=== PATIENT | male | born 1980 ===

== ENCOUNTER 2018-12-24 22:05 | Emergency (ER) | payer OTHER ==
[2018-12-24 22:17] VITALS: BMI 23.6
[2018-12-24] MEDS ORDERED: Albuterol-Ipratrop 3 mg / 0.5 (3 ml) UD IH STA (23:16)
[2018-12-25 00:31] VITALS: BP 129/74; PULSE 82; RESP 17; O2SAT 100
--- NOTE | 2018-12-25 00:34 | ED PDOC ---
Arrival/HPI - General Chief Complaint: Shortness Of Breath Time Seen by Provider: 12/24/18 22:14 Historian: Patient - History of Present Illness Narrative History of Present Illness (Text): 12/25/18 22:14 Mango Light is a 38 year old male, with no significant past medical history, who presents to the emergency department complaining of productive cough, headache, runny nose, and chest pain. Patient informs chest pain is secondary to inspiration. Patient notes sick contact in his home. Patient denies any fevers, chills, dizziness, vision changes, shortness of breath, dyspnea on exertion, abdominal pain, nausea, vomiting, diarrhea, back pain, neck pain, or any other complaint. Symptom Onset: Gradual Symptom Course: Unchanged Activities at Onset: Light Context: Home Past Medical History - Provider Review Nursing Documentation Reviewed: Yes - Cardiac Hx Cardiac Disorders: No - Pulmonary Hx Respiratory Disorders: No - Psychiatric Hx Substance Use: No - Anesthesia Hx Anesthesia: No Family/Social History - Physician Review Nursing Documentation Reviewed: Yes Family/Social History: No Known Family HX Smoking Status: Never Smoked Hx Alcohol Use: Yes Frequency of alcohol use: Socially Hx Substance Use: No Allergies/Home Meds Allergies/Adverse Reactions: Allergies No Known Allergies Allergy (Verified 12/24/18 22:17) Review of Systems - Physician Review All systems were reviewed & negative as marked: Yes - Review of Systems Constitutional: absent: Fevers, Other (chills) Eyes: absent: Vision Changes ENT: Rhinorrhea, Sinus Congestion Respiratory: Cough, Sputum. absent: SOB Cardiovascular: Chest Pain (secondary to inspiration). absent: CALDERÓN Gastrointestinal: absent: Abdominal Pain, Diarrhea, Nausea, Vomiting Musculoskeletal: absent: Back Pain, Neck Pain Neurological: Headache. absent: Dizziness Physical Exam Vital Signs Reviewed: Yes Vital Signs Temp Pulse Resp BP Pulse Ox 12/24/18 22:16 98.5 F 79 18 142/88 99 Temperature: Afebrile Blood Pressure: Normal Pulse: Regular Respiratory Rate: Normal Appearance: Positive for: Well-Appearing, Non-Toxic, Comfortable Pain Distress: None Mental Status: Positive for: Alert and Oriented X 3 - Systems Exam Head: Present: Atraumatic, Normocephalic Pupils: Present: PERRL Extroacular Muscles: Present: EOMI Conjunctiva: Present: Normal Mouth: Present: Moist Mucous Membranes Neck: Present: Normal Range of Motion Respiratory/Chest: Present: Good Air Exchange, Rhonchi (mild rhonchi bilaterally). No: Respiratory Distress, Accessory Muscle Use Cardiovascular: Present: Regular Rate and Rhythm, Normal S1, S2. No: Murmurs Abdomen: No: Tenderness, Distention, Peritoneal Signs Back: Present: Normal Inspection Upper Extremity: Present: Normal Inspection. No: Cyanosis, Edema Lower Extremity: Present: Normal Inspection. No: Edema Neurological: Present: GCS=15, CN II-XII Intact, Speech Normal Skin: Present: Warm, Dry, Normal Color. No: Rashes Psychiatric: Present: Alert, Oriented x 3, Normal Insight, Normal Concentration Medical Decision Making ED Course and Treatment: 12/25/18 22:14 Impression: Patient is 38 year old male who presents to the emergency department complaining of productive cough, headache, congestion, and chest pain. Patient notes chest pain is secondary to inspiration. Pt informs of sick contact at home. Differential Diagnosis included but are not limited to: Plan: -- Chest X-Ray 2V -- Duoneb -- Zithromax -- Influenza A B -- Reassess and disposition Prior Visits: Notes and results from previous visits were reviewed. Progress Notes: chest x sabine neg improved will dc on z pack - RAD Interpretation Radiology Orders: 12/24/18 23:16 CHEST TWO VIEWS (PA/LAT) [RAD] Stat - Medication Orders Current Medication Orders: Discontinued Medications Albuterol/Ipratropium (Duoneb 3 Mg/0.5 Mg (3 Ml) Ud) 3 ml IH STAT STA Stop: 12/24/18 23:17 Last Admin: 12/25/18 00:00 Dose: 3 ml - Scribe Statement The provider has reviewed the documentation as recorded by the Scribe Tristen Rodriges All medical record entries made by the Scribe were at my direction and personally dictated by me. I have reviewed the chart and agree that the record accurately reflects my personal performance of the history, physical exam, medical decision making, and the department course for this patient. I have also personally directed, reviewed, and agree with the discharge instructions and disposition. Disposition/Present on Arrival - Present on Arrival Any Indicators Present on Arrival: No History of DVT/PE: No History of Uncontrolled Diabetes: No Urinary Catheter: No History of Decub. Ulcer: No History Surgical Site Infection Following: None - Disposition Have Diagnosis and Disposition been Completed?: Yes Diagnosis: Upper respiratory infection Disposition: HOME/ ROUTINE Disposition Time: 00:55 Condition: GOOD Discharge Instructions (ExitCare): Bacterial Upper Respiratory Infection, Adult (DC) Prescriptions: Azithromycin [Zithromax] 250 mg PO DAILY #4 tab Forms: [employer] ([place]), WORK NOTE
[2018-12-25 00:56] VITALS: TEMP 98.1
--- NOTE | 2018-12-25 08:18 | RAD ---
Date of service: 12/24/2018 HISTORY: cough COMPARISON: No prior. TECHNIQUE: Chest PA and lateral FINDINGS: LUNGS: Slightly increased and coarse interstitial markings suggesting underlying changes of reactive/inflammatory airway or viral illness. PLEURA: No significant pleural effusion identified. No pneumothorax apparent. CARDIOVASCULAR: No aortic atherosclerotic calcification present. Normal cardiac size. No pulmonary vascular congestion. OSSEOUS STRUCTURES: No significant abnormalities. VISUALIZED UPPER ABDOMEN: Normal. OTHER FINDINGS: None. IMPRESSION: Slightly increased and coarse interstitial markings suggesting underlying changes of reactive/inflammatory airway disease or viral illness.
== END 2018-12-25 00:56 | disposition home or self-care (01) ==
LOC: ED 22:05
DX: J06.9 Acute upper respiratory infection, unspecified (principal)